=== PATIENT | female | born 1975 | race Caucasian/White ===

== ENCOUNTER 2016-08-28 13:06 | Emergency (ER) | payer MEDICARE, OTHER ==
[~2016-08-28] VITALS: Ht 165.1 cm; Wt 120.0 kg
[~2016-08-28 13:06] MED LIST: Baclofen Pump; CLON1 PO; ESCI10TA PO; HYDR-3533 PO; LACO100S PO; TRAZ100T4 PO; VALP250S2 PO; XARE20TA PO; ZOFR8TAB PO; [UNRECOGNIZED DRUG - SUPPLY] TD
[2016-08-28 13:24] VITALS: BP 146/100; PULSE 103; RESP 24; TEMP 98.5; O2SAT 92
[2016-08-28 14:03] LABS: AUTOMATED NEUTROPHIL # 2.1 TH/MM3 (1.8-7.7); BASOPHIL % 0.5 % (0.0-2.0); EOSINOPHIL % 1.1 % (0.0-4.0); HEMATOCRIT 39.7 % (35.0-46.0); HEMO FLAGS DIFF FINAL; LYMPH % 37.4 % (9.0-44.0); LYMPHOCYTE # 1.5 TH/MM3 (1.0-4.8); MEAN CELL VOLUME 88.2 FL (80.0-100.0); MEAN CORPUSCULAR HEMOGLOBIN 28.5 PG (27.0-34.0); MEAN CORPUSCULAR HGB CONC 32.3 % (32.0-36.0); MONO % 9.9 % (0.0-8.0); NEUT % 51.1 % (16.0-70.0); PLATELET COUNT 197 TH/MM3 (150-450); RED CELL DISTRIBUTION WIDTH 13.8 % (11.6-17.2); WHITE BLOOD COUNT 4.1 TH/MM3 (4.0-11.0)
[2016-08-28 14:22] LABS: BICARBONATE 27.4 MEQ/L (21.0-32.0)
[2016-08-28 14:23] LABS: POTASSIUM 4.7 MEQ/L (3.5-5.1)
[2016-08-28 14:30] VITALS: BP 136/89; PULSE 100; RESP 24; O2SAT 93
--- NOTE | 2016-08-28 14:32 | PD ---
HPI Chief Complaint: Seizure Time Seen by Provider: 13:38 Travel History International Travel<30 days: No Contact w/Intl Traveler<30days: No Traveled to known affect area: No History of Present Illness HPI 40-year-old female came to the emergency room with history of possible seizure as witnessed by the mother. Patient has history of seizure disorder as well as pseudoseizures. EMS was called and she was brought in by EMS. On route patient was doing seizure-like activity although by the time she arrived and when I saw these activities to a look like pseudoseizure. As per paramedics she did have urinary incontinence. Currently patient is awake and answering questions. PFSH Past Medical History Narrative Medical List of her past medical history as reviewed from the nursing note. Anxiety: Yes Cancer: Yes (CERVICAL polyps removed) Cardiovascular Problems: No High Cholesterol: No Diabetes: No Diminished Hearing: No Endocrine: No Glaucoma: No Genitourinary: Yes (INCONTINENT happened when back pump placed) Hepatitis: No Hiatal Hernia: No Hypertension: No Immune Disorder: No Medical other: Yes (CEREBRAL PALSY) Musculoskeletal: Yes (ARTHRITIS, BACK PAIN) Neurologic: Yes (SEIZURE HX, CP, MIGRAINES tremors) Psychiatric: Yes (pt states she is afraid of the dark) Reproductive: Yes (benign uterine tumor ) Respiratory: No Seizures: Yes Thyroid Disease: No ?: Not Past Surgical History Abdominal Surgery: Yes (INSERTION OF SYNCHROMED PUMP 02/2002) AICD: No Body Medical Devices: SYNCHROMED PUMP Cardiac Surgery: No Ear Surgery: No Endocrine Surgery: No Eye Surgery: No Genitourinary Surgery: No Gynecologic Surgery: No Joint Replacement: No Neurologic Surgery: Yes (SYNCHROMED PUMP INSERT 02/2002) Oral Surgery: Yes (ALL 4 WISDOM TEETH REMOVED) Pacemaker: No Thoracic Surgery: Yes (BREAST BIOPSY) Other Surgery: Yes (INSERTION SYNCHROMED PUMP 02/2002 baclofen pump) Social History Alcohol Use: No Tobacco Use: No Substance Use: No Allergies-Medications (Allergen,Severity, Reaction): Coded Allergies: Codeine (Verified Allergy, Severe, VOMITING, 08/28/16) Dilantin (Verified Allergy, Severe, HIVES, 08/28/16) Onion (Verified Allergy, Severe, 08/28/16) Sulfa (Verified Allergy, Severe, VOMITING, 08/28/16) *MDRO Multi-Drug Resistant Organism (Verified Adverse Reaction, Unknown, ) MRSA PCR (nares) positive - 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 Reported Meds & Prescriptions Reported Meds & Active Scripts Active Zofran (Ondansetron HCl) 8 Mg Tab 8 Mg PO TID Xarelto (Rivaroxaban) 20 Mg Tab 20 Mg PO DAILY Klonopin (Clonazepam) 1 Mg Tab 1 Mg PO TID Escitalopram (Escitalopram Oxalate) 10 Mg Tab 10 Mg PO DAILY Reported Lioresal Intrathecal Inj (Baclofen) 0.05 Mg/Ml Syr 158.9 Mcg IT CONTINUOUS Use Only with pump labeled for intrathecal administration. Flonase Allergy Relief Nasal [place] (Fluticasone Nasal [place]) 50 Mcg/Act [place] 1 [place] EACH NARE BID PRN Lortab (Hydrocodone-Acetaminophen) 5-325 Mg Tab 1 Tab PO TID PRN Carbamazepine 200 Mg Tab 200 Mg PO BID Valproic Acid Liq 250 Mg/5 Ml Syp 750 Mg PO Q8HR Trazodone (Trazodone HCl) 100 Mg Tab 100 Mg PO HS Vimpat Liq (Lacosamide) 10 Mg/Ml Soln 100 Mg PO BID Narrative Medication List of her home medications reviewed from the nursing note. Review of Systems Except as stated in HPI: all other systems reviewed are Neg Physical Exam Narrative GENERAL: Awake, alert, morbidly obese SKIN: Warm and dry. HEAD: Atraumatic. Normocephalic. EYES: Pupils equal and round. No scleral icterus. No injection or drainage. ENT: No nasal bleeding or discharge. Mucous membranes pink and moist. NECK: Trachea midline. No JVD. CARDIOVASCULAR: Regular rate and rhythm. No murmur appreciated. RESPIRATORY: No accessory muscle use. Clear to auscultation. Breath sounds equal bilaterally. GASTROINTESTINAL: Abdomen soft, non-tender, nondistended. Hepatic and splenic margins not palpable. MUSCULOSKELETAL: No obvious deformities. No clubbing. No cyanosis. No edema. NEUROLOGICAL: Awake and alert. No obvious cranial nerve deficits. Motor grossly within normal limits. Normal speech. PSYCHIATRIC: Appropriate mood and affect; insight and judgment normal. Data Data Last Documented VS Vital Signs Date Time Temp Pulse Resp B/P Pulse Ox O2 Delivery O2 Flow Rate FiO2 08/28/16 15:30 96 24 165/92 94 Nasal Cannula 2.0 08/28/16 13:24 98.5 Orders Complete Blood Count With Diff (08/28/16 13:38) Basic Metabolic Panel (Bmp) (08/28/16 13:38) Valproic Acid (Depakene) (08/28/16 13:38) Carbamazepine (Tegretol) (08/28/16 13:38) Creatine Kinase (Cpk) (08/28/16 13:38) Valproic Acid Liq (Depakene Liq) (08/28/16 14:45) Labs Laboratory Tests Test 08/28/16 13:30 White Blood Count 4.1 TH/MM3 Red Blood Count 4.50 MIL/MM3 Hemoglobin 12.8 GM/DL Hematocrit 39.7 % Mean Corpuscular Volume 88.2 FL Mean Corpuscular Hemoglobin 28.5 PG Mean Corpuscular Hemoglobin 32.3 % Concent Red Cell Distribution Width 13.8 % Platelet Count 197 TH/MM3 Mean Platelet Volume 8.3 FL Neutrophils (%) (Auto) 51.1 % Lymphocytes (%) (Auto) 37.4 % Monocytes (%) (Auto) 9.9 % Eosinophils (%) (Auto) 1.1 % Basophils (%) (Auto) 0.5 % Neutrophils # (Auto) 2.1 TH/MM3 Lymphocytes # (Auto) 1.5 TH/MM3 Monocytes # (Auto) 0.4 TH/MM3 Eosinophils # (Auto) 0.0 TH/MM3 Basophils # (Auto) 0.0 TH/MM3 CBC Comment DIFF FINAL Differential Comment Sodium Level 136 MEQ/L Potassium Level 4.7 MEQ/L Chloride Level 102 MEQ/L Carbon Dioxide Level 27.4 MEQ/L Anion Gap 7 MEQ/L Blood Urea Nitrogen 11 MG/DL Creatinine 0.78 MG/DL Estimat Glomerular Filtration 81 ML/MIN Rate Random Glucose 148 MG/DL Calcium Level 8.6 MG/DL Total Creatine Kinase 93 U/L Valproic Acid (Depakene) Level 47 MCG/ML Carbamazepine (Tegretol) Level 5.2 MCG/ML MDM Medical Decision Making Medical Screen Exam Complete: Yes Emergency Medical Condition: Yes Medical Record Reviewed: Yes Differential Diagnosis Seizure versus pseudoseizures Narrative Course Blood test results of back and within normal limit. CPKs within normal limit. Mother had told the paramedics that patient had seizure for 10 minutes. Given normal CPK I find that extremely hard to believe. Here patient did not have seizure activities. Her Depakote level is on the lower side. I've given her one of her doses. I will discharge her home. Procedures EKG Prior to Arrival: No Diagnosis Primary Impression: Pseudoseizures Referrals: Primary Care Physician 2 days Additional Instructions: Please follow-up with her primary care and her neurologist. Return to the ER if the condition worsens or any other new concerns. Med/Other Pt SpecificInfo: No Change to Meds Disposition: 01 DISCHARGE HOME Condition: Stable Ty Mendoza MD Aug 28, 2016 14:32
[2016-08-28] MEDS ORDERED: FLUT1SPR5 EACH NARE (14:44)
[2016-08-28] MEDS ORDERED: CARB200T PO (14:44)
[2016-08-28] MEDS ORDERED: HYDR-3533 PO (14:44)
[2016-08-28] MEDS ORDERED: VALPROIC ACID SYRUP 250 MG/5 ML UDC PO ONE (14:45)
[2016-08-28] MEDS ORDERED: LIOR0.05 IT (14:56)
[2016-08-28 15:30] VITALS: BP 165/92; PULSE 96; RESP 24; O2SAT 94
[2016-09-06] MEDS ORDERED: CLON1 PO (15:55)
[2016-09-06] MEDS ORDERED: HYDR-3533 PO (15:55)
[2016-09-08] MEDS ORDERED: HOSP BED1 (11:32)
[2016-10-29] MEDS ORDERED: LIFT HOYER (11:57)
[2016-10-29] MEDS ORDERED: [UNRECOGNIZED DRUG - SUPPLY] (11:57)
[2016-11-04] MEDS ORDERED: [UNRECOGNIZED DRUG - SUPPLY] ×2 (13:51)
[2016-11-04] MEDS ORDERED: LIFT HOYER (13:51)
[2016-12-28] MEDS ORDERED: ZOFR8TAB PO (10:07)
[2017-01-05] MEDS ORDERED: LIFT HOYER ×2 (15:27→15:48)
[2017-01-21] MEDS ORDERED: ESCI10TA PO (13:27)
[2017-01-26] MEDS ORDERED: LOPE2CAP PO (16:37)
== END 2016-08-28 17:07 | disposition home or self-care (01) ==
LOC: NEPC 13:06
DX: G40.89 Other seizures (principal); R32 Unspecified urinary incontinence; G80.9 Cerebral palsy, unspecified
CPT/HCPCS: 80048; 80156; 80164; 82550; 85025

== ENCOUNTER 2017-11-07 09:45 | Day surgery (SDC) | payer MEDICARE, OTHER ==
[2017-11-07] VITALS (12 sets, daily range): BP systolic 84–137; BP diastolic 41–97; PULSE 79–162; RESP 20; TEMP 97.9–98.5; O2SAT 92–97
[~2017-11-07] VITALS: Ht 165.1 cm; Wt 120.9 kg
[~2017-11-07 09:45] MED LIST changes: +BACL10P IT; -Baclofen Pump; +CARB200T PO; -CLON1 PO; +HOSP BED1; -HYDR-3533 PO; +LIFT HOYER; -TRAZ100T4 PO; -XARE20TA PO; +[UNRECOGNIZED DRUG - CODE]; -[UNRECOGNIZED DRUG - SUPPLY] TD
[2017-11-07] MEDS ORDERED: SODIUM CHLOR 0.9% 1000 ML INJ 1,000 ML IV SCH (10:15)
[2017-11-07] MEDS ORDERED: TRAZ50TA12 PO (10:34)
[2017-11-07] MEDS ORDERED: VALP250S2 PO (10:34)
[2017-11-07] MEDS ORDERED: FOLI800T PO (10:34)
[2017-11-07] MEDS ORDERED: ZONI100C2 PO (10:34)
[2017-11-07] MEDS ORDERED: MIDAZOLAM HCL 2 MG/2 ML VIAL ONE ×2 (12:10→13:37)
[2017-11-07] MEDS ORDERED: fentaNYL CITRATE 250 MCG/5 ML AMP ONE (12:10)
[2017-11-07] MEDS ORDERED: LORazepam 2 MG/ML VIAL ONE (13:29)
--- NOTE | 2017-11-07 14:01 | PD.RAD ---
Post CT Procedure Prog Note Pre Procedure Diagnosis: (1) Left adenexal mass Post Procedure Diagnosis: (1) Left adenexal mass Procedure Date: Nov 07, 2017 Supervising Radiologist: Norm Treviño Anesthesia: Local, Conscious Sedation Plan of Activity Patient to Unit: [facility] Patient Condition: Good See PACS Report for procedural detail/treatment Biopsy Imaging Guidance: CT Side: Left Biopsy Procedure: Pelvic Mass Site: Left adnexa Specimen: Core Biopsy, Fine Needle Aspirate Fluid Description: Bloody Additional Detail: Pt developed seizure activity post procedure which responded to Ativan 2mg and Versed 1mg IV. Plan Discharge in 2 hours if no further seizure activity. Norm Treviño MD Nov 07, 2017 14:01
--- NOTE | 2017-11-07 14:38 | RADRPT ---
EXAM DATE/TIME: 11/07/2017 12:41 [facility] COMPARISON: No previous studies available for comparison. INDICATIONS : Mass. SEDATION TIME: 30 minutes BIOPSY SITE: pelvic mass MEDICATION(S): 1.) 3 mg midazolam (Versed) IV 2.) 250 mcg fentanyl (Sublimaze) IV DEVICE(S): 1.) 20 gauge Temno core biopsy needle MEDICAL HISTORY : Seizures. cerebral palsy, cervical cancer SURGICAL HISTORY : None. ENCOUNTER: Initial ACUITY: 1 day PAIN SCORE: 0/10 LOCATION: Bilateral pelvis A total of three core specimen(s) were obtained and sent to the laboratory for pathologic evaluation. PROCEDURE: 1. CT guided pelvic biopsy. 2. Conscious sedation with continuous EKG and oximetry monitoring. 3. EKG and oximetry remained stable throughout the procedure. Prior to the procedure informed consent was obtained. Any appropriate prior imaging studies were rev iewed. Using automated exposure control and adjustment of the mA and/or kV according to patient size, radiat ion dose was kept as low as reasonably achievable to obtain optimal diagnostic quality images. DICOM format image data is available electronically for review and comparison. The site was prepped in a sterile fashion. Full sterile technique was used, including cap, mask, candace rile gloves and gown and a large sterile sheet. Hand hygiene and 2% chlorhexidine and/or betadine/al cohol prep was utilized per protocol for cutaneous antisepsis. The skin and subcutaneous tissues wer e infiltrated with local anesthetic solution. With CT guidance the previously identified target was localized. Biopsy was performed using the presc ribed needle as above. Adequate hemostasis was obtained with compression at the puncture site. Follow-up CT scan reveals no hemorrhage. The patient tolerated the procedure well but developed seizure activity following the procedure. [facility] is known to have significant seizures. Patient was treated with Ativan 2 mg and Versed 1 mg IV wi th good response and cessation seizures. No other comp occasions occurred. The patient was returned t o the Radiology Outpatient Unit in stable condition. CONCLUSION: Uncomplicated CT guided biopsy. Post procedure seizure which resolved following administration of Ativan and Versed as described kvng Treviño MD on November 07, 2017 at 14:32 Board Certified Radiologist. This report was verified electronically.
--- NOTE | 2017-11-07 16:10 | RADRPT ---
EXAM DATE/TIME: 11/07/2017 11:54 [facility] COMPARISON: No previous studies available for comparison. INDICATIONS : Patient in need of peripheral intravenous access prior to catscan procedure. MEDICAL HISTORY : Anxiety Cerebral palsy Lymphadenopathy SURGICAL HISTORY : Hip sx Uterine biopsy Spinal sx ENCOUNTER: Initial ACUITY: 1 day PAIN SCORE: 0/10 LOCATION: N/A IMAGE SERIES: 0 ACCESS: Right basilic vein DEVICE(S): 1.) 3/4 Swiss Dilator PROCEDURE : 1. Ultrasound guided venous access. The risks, benefits and alternatives to the procedure were explained and verbal and written consent w as obtained. The site was prepped in sterile fashion. Full sterile technique was used, including ca p, mask, sterile gloves and gown and a large sterile sheet. Hand hygiene and 2% chlorhexidine and/or betadine/alcohol prep was utilized per protocol for cutaneous antisepsis. Sterile gel and sterile p robe cover were utilized for ultrasound guidance. The skin and subcutaneous tissues were infiltrate d with local anesthetic solution. With ultrasound guidance the prescribed vein was punctured for venous access. A 4 Swiss dilator was placed and was flushed and locked with heparin. The patient tolerated procedure well and there were n o complications. CONCLUSION: Uncomplicated ultrasound guided venous access. Kieran Tate Jr., MD on November 07, 2017 at 16:07 Board Certified Radiologist. This report was verified electronically.
[2017-11-07] MEDS ORDERED: LACOSAMIDE INJ 100 MG in SODIUM CHLORIDE 0.9% INJ 100 ML IV ONE (16:30)
[2017-11-07] MEDS ORDERED: FOLI1TAB6 PO (18:44)
[2017-11-07] MEDS ORDERED: TRAZ100T10 PO (18:44)
== END 2017-11-07 17:15 | disposition home or self-care (01) ==
LOC: HRAD 09:45 → HRIP 09:49 → HRAD 17:15
PROVIDERS: ATTEND Obstetrics & Gynecology Gynecologic Oncology
DX: R19.00 Intra-abdominal and pelvic swelling, mass and lump, unspecified site (principal); F41.9 Anxiety disorder, unspecified; G80.9 Cerebral palsy, unspecified; Z85.41 Personal history of malignant neoplasm of cervix uteri; G40.909 Epilepsy, unspecified, not intractable, without status epilepticus; M19.90 Unspecified osteoarthritis, unspecified site; Z86.718 Personal history of other venous thrombosis and embolism; Z86.711 Personal history of pulmonary embolism; Z88.2 Allergy status to sulfonamides; Z88.5 Allergy status to narcotic agent; Z79.899 Other long term (current) drug therapy
CPT/HCPCS: 36410; 49180; 76937; 77012; 88307; 88333; 99152; 99153; J2060; J2250; J3010; J7030; 80053; 80164; 83605; 85025; 88305; 96374; J2405

== ENCOUNTER 2017-11-07 17:06 | Emergency (ER) | payer MEDICARE, OTHER ==
[~2017-11-07] VITALS: Ht 162.6 cm; Wt 120.0 kg
[~2017-11-07 17:06] MED LIST changes: +FOLI800T PO; +TRAZ50TA12 PO; +ZONI100C2 PO
[2017-11-07 17:08] VITALS: BP 110/61; PULSE 98; RESP 18; TEMP 98.1; O2SAT 98
[2017-11-07 18:09] VITALS: BP 110/67; PULSE 87; RESP 17; O2SAT 99
--- NOTE | 2017-11-07 18:16 | PD ---
HPI Chief Complaint: Seizure Time Seen by Provider: 17:21 Travel History International Travel<30 days: No Contact w/Intl Traveler<30days: No History of Present Illness HPI 41y female presents top the ED at from radiology after a seizure that occurred just prior to arrival. Patient was not able to tell me what was going her on with her at the initial evaluation. After questioning again, patient says that she was at her radiologist office when she had multiple seizures. Says that she did not take her medications this morning which include carbamazepine, zonisamide, and valproic acid for seizures. Says she did have a seizure last month. She denies fever, chills, chest pain, shortness of breath. PFSH Past Medical History Anxiety: Yes Cancer: Yes (CERVICAL polyps removed) Cardiovascular Problems: Yes (hx DVT/PE) High Cholesterol: No Diabetes: No Diminished Hearing: No Endocrine: No Glaucoma: No Genitourinary: Yes (INCONTINENT ) Hepatitis: No Hiatal Hernia: No Hypertension: No Immune Disorder: No Medical other: Yes (CEREBRAL PALSY) Musculoskeletal: Yes (ARTHRITIS, BACK PAIN) Neurologic: Yes (SEIZURE HX, CP, MIGRAINES tremors,epilepsy, cerebral palsy) Psychiatric: Yes (pt states she is afraid of the dark, anxiety) Reproductive: Yes (benign uterine tumor ) Respiratory: No Seizures: Yes Thyroid Disease: No Tetanus Vaccination: > 5 Years Influenza Vaccination: Yes ?: Not LMP: : 0 Past Surgical History Abdominal Surgery: Yes (INSERTION OF SYNCHROMED PUMP 02/2002) AICD: No Body Medical Devices: SYNCHROMED PUMP Cardiac Surgery: No Ear Surgery: No Endocrine Surgery: No Eye Surgery: No Genitourinary Surgery: No Gynecologic Surgery: No Joint Replacement: No Neurologic Surgery: Yes (SYNCHROMED PUMP INSERT 02/2002) Oral Surgery: Yes (ALL 4 WISDOM TEETH REMOVED) Pacemaker: No Thoracic Surgery: Yes (BREAST BIOPSY) Other Surgery: Yes (INSERTION SYNCHROMED PUMP 02/2002 baclofen pump) Social History Alcohol Use: No Tobacco Use: No Substance Use: No Allergies-Medications (Allergen,Severity, Reaction): Coded Allergies: onion (Verified Allergy, Severe, itching, 11/07/17) phenytoin (Verified Allergy, Severe, HIVES, 11/07/17) Sulfa (Sulfonamide Antibiotics) (Verified Adverse Reaction, Severe, VOMITING, 11/07/17) codeine (Verified Adverse Reaction, Severe, VOMITING, 11/07/17) *MDRO Multi-Drug Resistant Organism (Verified Adverse Reaction, Unknown, ) MRSA PCR (nares) positive - 12/02/15 Reported Meds & Prescriptions Reported Meds & Active Scripts Active Zofran (Ondansetron HCl) 8 Mg Tab 8 Mg PO BID Escitalopram (Escitalopram Oxalate) 10 Mg Tab 10 Mg PO DAILY Reported Folic Acid 1 Mg Tablet 2 Mg PO DAILY Trazodone (Trazodone HCl) 100 Mg Tablet 100 Mg PO HS Zonisamide 100 Mg Cap 100 Mg PO DAILY Valproic Acid Liq 250 Mg/5 Ml Syp 750 Mg PO Q8HR Lio[place] Intrathecal Inj (Baclofen) 10 Mg/20 Ml Kit 152.79 Mcg IT CONTINUOUS For intrathecal use only with intrathecal pump. Carbamazepine 200 Mg Tab 200 Mg PO BID Vimpat Liq (Lacosamide) 10 Mg/Ml Soln 100 Mg PO BID Review of Systems Except as stated in HPI: all other systems reviewed are Neg Physical Exam Narrative GENERAL: Well developed, well-nourished in no apparent distress. At initial evaluation, patient appeared to be having a seizure although was able to follow my movements with her eyes and did appear to acknowledge my presence SKIN: Focused skin assessment warm/dry. HEAD: Atraumatic. Normocephalic. EYES: Pupils equal and round. No scleral icterus. No injection or drainage. ENT: No nasal bleeding or discharge. Mucous membranes pink and moist. NECK: Trachea midline. No JVD. CARDIOVASCULAR: Regular rate and rhythm. No murmur appreciated. RESPIRATORY: No accessory muscle use. Clear to auscultation. Breath sounds equal bilaterally. GASTROINTESTINAL: Abdomen soft, non-tender, nondistended. Hepatic and splenic margins not palpable. MUSCULOSKELETAL: No obvious deformities. No clubbing. No cyanosis. No edema. NEUROLOGICAL: Awake and alert. No obvious cranial nerve deficits. Motor grossly within normal limits. Normal speech. PSYCHIATRIC: Appropriate mood and affect; insight and judgment normal. Data Data Last Documented VS Vital Signs Date Time Temp Pulse Resp B/P (MAP) Pulse Ox O2 Delivery O2 Flow Rate FiO2 11/07/17 19:20 95 15 118/68 (85) 95 Room Air 11/07/17 17:08 98.1 Orders Orders Lactic Acid (11/07/17 18:18) Carbamazepine (Tegretol) (11/07/17 19:00) Valproic Acid Liq (Depakene Liq) (11/07/17 19:00) Zonisamide (Zonegran) (11/07/17 19:00) Ondansetron Inj (Zofran Inj) (11/07/17 19:30) Complete Blood Count With Diff (11/07/17 20:16) Valproic Acid (Depakene) (11/07/17 20:16) Blood Glucose (11/07/17 20:16) Ecg Monitoring (11/07/17 20:16) Iv Access Insert/Monitor (11/07/17 20:16) Oximetry (11/07/17 20:16) Comprehensive Metabolic Panel (11/07/17 20:16) Sodium Chloride 0.9% Flush (Ns Flush) (11/07/17 20:30) Ed Discharge Order (11/07/17 21:51) Labs Laboratory Tests Test 11/07/17 18:20 11/07/17 20:40 Lactic Acid Level 0.6 mmol/L White Blood Count 4.9 TH/MM3 Red Blood Count 4.61 MIL/MM3 Hemoglobin 13.2 GM/DL Hematocrit 39.6 % Mean Corpuscular Volume 85.9 FL Mean Corpuscular Hemoglobin 28.7 PG Mean Corpuscular Hemoglobin Concent 33.5 % Red Cell Distribution Width 13.2 % Platelet Count 209 TH/MM3 Mean Platelet Volume 8.4 FL Neutrophils (%) (Auto) 65.8 % Lymphocytes (%) (Auto) 23.9 % Monocytes (%) (Auto) 9.6 % Eosinophils (%) (Auto) 0.2 % Basophils (%) (Auto) 0.5 % Neutrophils # (Auto) 3.2 TH/MM3 Lymphocytes # (Auto) 1.2 TH/MM3 Monocytes # (Auto) 0.5 TH/MM3 Eosinophils # (Auto) 0.0 TH/MM3 Basophils # (Auto) 0.0 TH/MM3 CBC Comment DIFF FINAL Differential Comment Blood Urea Nitrogen 15 MG/DL Creatinine 0.68 MG/DL Random Glucose 104 MG/DL Total Protein 8.3 GM/DL Albumin 3.0 GM/DL Calcium Level 8.3 MG/DL Alkaline Phosphatase 74 U/L Aspartate Amino Transf (AST/SGOT) 16 U/L Alanine Aminotransferase (ALT/SGPT) 11 U/L Total Bilirubin 0.2 MG/DL Sodium Level 137 MEQ/L Potassium Level 4.3 MEQ/L Chloride Level 105 MEQ/L Carbon Dioxide Level 26.6 MEQ/L Anion Gap 5 MEQ/L Estimat Glomerular Filtration Rate 95 ML/MIN Valproic Acid (Depakene) Level 47 MCG/ML MDM Medical Decision Making Medical Screen Exam Complete: Yes Emergency Medical Condition: Yes Differential Diagnosis Pseudoseizure, seizure, generalized epilepsy Narrative Course 41-year-old female presents emergency department from the radiologist office for an evaluation of seizure activity that occurred just after her radiology appointment. Patient is chronically incontinent. Does not appear to be any tongue biting. I discussed this case with Dr. Bates who recommended ordering a lactic acid as this may be a good indicator of seizure vs pseudoseizure. Lactic acid 0.6. After further discussion with the patient, it appears that patient wants to be admitted because she "does not have help at home". I did discuss his case with Dr. Bates who feels that an outpatient evaluation is more appropriate if her lactic acid level was normal. I did add further evaluation with lab studies. Her valproic acid level was 47. Note that our levels of normal is 50-100. I spoke with the caregiver as well who indicated that patient did appear herself did not appear altered. States that she has these episodes which are fairly benign. She does take her medications regularly and has a caregiver at home to assist her. Caregiver agrees that patient should go home and resume home medications. Patient is stable to follow-up with her primary care physician, neurologist. Diagnosis Primary Impression: Seizure disorder Referrals: Neurologist Primary Care Physician Additional Instructions: Follow up with Dr. Jerry tomorrow, as discussed. Take all medications as prescribed. Disposition: 01 DISCHARGE HOME Condition: Stable Salome Brown Nov 07, 2017 18:16
--- NOTE | 2017-11-07 18:19 | PD ---
Physical Exam Date Seen by Provider: Nov 07, 2017 Narrative This patient was sent to us from radiology because of seizures. She has a known seizure disorder. She was in radiology for a biopsy when she started exhibiting seizure type activity. Data Data Last Documented VS Vital Signs Date Time Temp Pulse Resp B/P (MAP) Pulse Ox O2 Delivery O2 Flow Rate FiO2 11/07/17 18:09 87 17 110/67 (81) 99 Room Air 11/07/17 17:08 98.1 MDM Supervised Visit with MAGGIE: Yes Narrative Course I, Dr. Bates, have reviewed the advance practice practitioner's documentation and am in agreement, met with the patient face to face, made the diagnosis, and the medical decision making was done by me. *My assessment and Findings: The patient was initially awake and alert. She started jerking her upper body while we were in the room. However, she would open her eyes and look at us from time to time and then close them again. Please see Salome Brown PA-C's note for further details, lab and radiology results, final diagnosis and disposition. Diagnosis Primary Impression: Pseudoseizures Tierra Bates MD Nov 07, 2017 18:19
[2017-11-07] MEDS ORDERED: FOLI1TAB6 PO (18:44)
[2017-11-07] MEDS ORDERED: TRAZ100T10 PO (18:44)
[2017-11-07] MEDS ORDERED: carBAMazepine 200 MG TAB PO ONE (19:00)
[2017-11-07] MEDS ORDERED: ZONISAMIDE 100 MG CAP PO ONE (19:00)
[2017-11-07] MEDS ORDERED: VALPROIC ACID SYRUP 250 MG/5 ML UDC PO ONE (19:00)
[2017-11-07 19:20] VITALS: BP 118/68; PULSE 95; RESP 15; O2SAT 95
[2017-11-07] MEDS ORDERED: ONDANSETRON HCL 4 MG/2 ML VIAL IV PUSH ONE (19:30)
[2017-11-07] MEDS ORDERED: SODIUM CHLORIDE 0.9% FLUSH 10 ML FLUSH IVF PRN (20:30)
[2017-11-07 21:20] LABS: AUTOMATED NEUTROPHIL # 3.2 TH/MM3 (1.8-7.7); BASOPHIL % 0.5 % (0.0-2.0); EOSINOPHIL % 0.2 % (0.0-4.0); HEMATOCRIT 39.6 % (35.0-46.0); HEMOGLOBIN 13.2 GM/DL (11.6-15.3); LYMPH % 23.9 % (9.0-44.0); LYMPHOCYTE # 1.2 TH/MM3 (1.0-4.8); MEAN CELL VOLUME 85.9 FL (80.0-100.0); MEAN CORPUSCULAR HEMOGLOBIN 28.7 PG (27.0-34.0); MEAN CORPUSCULAR HGB CONC 33.5 % (32.0-36.0); MEAN PLATELET VOLUME 8.4 FL (7.0-11.0); MONO % 9.6 % (0.0-8.0); MONOCYTE # 0.5 TH/MM3 (0-0.9); NEUT % 65.8 % (16.0-70.0); PLATELET COUNT 209 TH/MM3 (150-450); RED BLOOD COUNT 4.61 MIL/MM3 (4.00-5.30); RED CELL DISTRIBUTION WIDTH 13.2 % (11.6-17.2); WHITE BLOOD COUNT 4.9 TH/MM3 (4.0-11.0)
[2017-11-07 21:38] LABS: ALKALINE PHOSPHATASE 74 U/L (45-117); ALT (GPT) 11 U/L (10-53); TOTAL BILIRUBIN ADULT 0.2 MG/DL (0.2-1.0); TOTAL PROTEIN 8.3 GM/DL (6.4-8.2)
[2017-11-07 21:44] LABS: AST (GOT) 16 U/L (15-37); BICARBONATE 26.6 MEQ/L (21.0-32.0); BLOOD UREA NITROGEN 15 MG/DL (7-18); CALCIUM 8.3 MG/DL (8.5-10.1); CHLORIDE 105 MEQ/L (98-107); CREATININE 0.68 MG/DL (0.50-1.00); GLOMERULAR FILTRATION RATE 95 ML/MIN (>89); GLUCOSE,RANDOM 104 MG/DL (74-106); SODIUM (NA) 137 MEQ/L (136-145)
== END 2017-11-07 22:53 | disposition home or self-care (01) ==
LOC: NEPC 17:06
DX: G40.909 Epilepsy, unspecified, not intractable, without status epilepticus (principal); G80.9 Cerebral palsy, unspecified; M19.90 Unspecified osteoarthritis, unspecified site; F41.9 Anxiety disorder, unspecified; Z85.41 Personal history of malignant neoplasm of cervix uteri; Z86.718 Personal history of other venous thrombosis and embolism; Z86.711 Personal history of pulmonary embolism; Z88.2 Allergy status to sulfonamides; Z88.5 Allergy status to narcotic agent; Z79.899 Other long term (current) drug therapy
CPT/HCPCS: 80053; 80164; 83605; 85025; 96374; 99283; J2405

== ENCOUNTER → 2017-11-28 | Day surgery (SDC) | payer MEDICARE, OTHER ==
[~2017-11-28] VITALS: Ht 165.1 cm; Wt 120.5 kg
[~2017-11-28] MED LIST changes: +*MEPERIDINE 25 MG INJ VIAL PERIprocedural Use ONLY ONE; +*morphine SULFATE 4 MG/ML PERIprocedure ONLY ONE; +ACETAMINOPHEN 1000 MG/100 ML 100 ML IV ONE; +BUPIVACAINE HCL PF 0.25% 30 ML VIAL ONE; +CHLORHEXIDINE GLUCONATE 2 % 1 PACK (2 CLOTHS) TOPICAL PRN; +DO NOT ADM ANY ANTICOAGULANT DRUGS PRN; +FOLI1TAB6 PO; -FOLI800T PO; +GLYCOPYRROLATE 1 MG/5 ML SYRINGE IV PUSH ONE; -HOSP BED1; +KETOROLAC TROMETHAMINE 30 MG/ML (IVP) VIAL IV PUSH ONE; +KETOROLAC TROMETHAMINE 30 MG/ML (IVP) VIAL ONE; +LACTATED RINGER'S 1000 ML IV PRN; +LIDOCAINE 1%/EPINEPHrine 1:100,000 SOLN 30 ML VIAL ONE; +LIDOCAINE HCL 1% PF 5 ML SYRINGE OTHER ONE; -LIFT HOYER; +METOPROLOL TARTRATE 25 MG TAB PO PRN; +MIDAZOLAM HCL 2 MG/2 ML VIAL IV ONE; +MIDAZOLAM HCL 2 MG/2 ML VIAL ONE; +NEOSTIGMINE 5 MG/5 ML SYRINGE IV PUSH ONE; +NORC5TAB PO; +POVIDONE IODINE 5% (ANTISEPSIS KIT) 4 APPLICATIONS EACH NARE PRN; +PROPOFOL 200 MG/20 ML AMP IV ONE; +ROCURONIUM INJ 50 MG/5 ML SYRINGE IV PUSH ONE; +SODIUM BICARBONATE 8.4% INJ 50 MEQ/50 ML SYR ONE; +SODIUM CHLORID 0.9% 500 ML IV PRN; +TRAZ100T10 PO; -TRAZ50TA12 PO; -[UNRECOGNIZED DRUG - CODE]; +ceFAZolin 2 GM/DEX PREMIX 50 ML IV SCH; +ePHEDrine/NS 25 MG/5 ML SYRINGE IV ONE
--- NOTE | 2017-11-28 12:37 | PD.OP ---
cc: Guevara Gupta MD Operative Report Preoperative Diagnosis: (1) Lymphadenopathy Postoperative Diagnosis: (1) Lymphadenopathy Procedure: Removal of enlarged lymph node in left axillary region Anesthesia: General Surgeon: Guevara Gupta Psychology Professor(s): Please refer to OR records Operation and Findings: Patient was taken to the operating room and placed in the supine position General anesthesia was instituted Left axillary and chest are prepped with Betadine Timeout and antibiotics were given Curvilinear incision is made in the axillary line about 4 cm. We dissected down into the deep axillary tissue removing a lymph node that is about 3 cm Hemostasis assured with electrocautery device The deep layers reapproximated with 3-0 Vicryl and the skin is closed with 4-0 Vicryl and Steri-Strips are applied sterile bandage applied patient tolerated procedure well and returned to the recovery room. Specimen sent down to pathology for pathological analysis labeled as left axillary lymph node Guevara Gupta MD Nov 28, 2017 12:37
[2017-11-28 15:45] VITALS: BP 143/79; PULSE 95; RESP 18; TEMP 98.8; O2SAT 96
== END | disposition home or self-care (01) ==
LOC: HSDC 06:41
PROVIDERS: ATTEND Surgery
DX: R59.1 Generalized enlarged lymph nodes (principal); G80.9 Cerebral palsy, unspecified; G40.909 Epilepsy, unspecified, not intractable, without status epilepticus; Z99.3 Dependence on wheelchair
CPT/HCPCS: 00400; 38500; 88307; 88341; 88342; J0690; J1885; J2175; J2250; J2270; J2710; J3010; J7120